=== PATIENT | male | born 2000 | race Hispanic/Latino ===

== ENCOUNTER 2020-02-06 13:41 | Emergency (ER) | payer BC ==
[~2020-02-06] VITALS: Ht 180.3 cm; Wt 121.1 kg
--- OUTSIDE RECORDS SUMMARY | ~2020-02-06 | XMS ---
Demographics + + + | Address | [address] | | | [place] [address] | + + + | Preferred Language | Unknown | + + + | Marital Status | Unknown | + + + | Temple Affiliation | Unknown | + + + | Race | Unknown | + + + | Ethnic Group | Unknown | + + + Author + + + | Author | [facility] | + + + | Organization | [facility] | + + + | Address | [address] | | | [place] [address] | + + + | Phone | | + + + Care Team Providers + + + + | Care Vacation Guide Name | Role | Phone | + + + + Unavailable | Unavailable | + + + + PROBLEMS + + + + + + + + | Type | Condition | ICD9-CM | [id number] | Onset | Condition | SNOMED | | | | Code | Code | Dates | Status | Code | + + + + + + + + | Problem | PTSD | | F43.10 | | Active | [id number] | | | (post-trau | | | | | | | | matic | | | | | | | | stress | | | | | | | | disorder) | | | | | | + + + + + + + + | Problem | Major | F32.9 | | | Active | [id number] | | | depressive | | | | | | | | disorder | | | | | | + + + + + + + + | Assessment | Major | F32.9 | | 21 Apr, | Active | [id number] | | | depressive | | | 2017 | | | | | disorder | | | | | | + + + + + + + + ALLERGIES + + + + +--------+ | Substance | Reaction | Event Type | Date | Status | + + + + +--------+ | Excedrin Extra | facial | Drug Allergy | Aug, | Active | | Strength | swelling/hives | | | | + + + + +--------+ | Advil Cold & | facial | Drug Allergy | Aug, | Active | | Sinus | swelling/hives | | | | | Liqui-Gels | | | | | + + + + +--------+ SOCIAL HISTORY No smoking Hx information available PLAN OF CARE VITAL SIGNS + + + + | Height | 70.5 in | 2016-08-29 | + + + + | Weight | 225.4 lbs | 2016-08-29 | + + + + | BMI | 31.88 kg/m2 | 2016-08-29 | + + + + | Temperature | 98.3 degrees Fahrenheit | 2016-08-29 | + + + + | Heart Rate | 73 /min | 2016-08-29 | + + + + | Blood pressure systolic | 135 mm Hg | 2016-08-29 | + + + + | Blood pressure diastolic | 60 mm Hg | 2016-08-29 | + + + + MEDICATIONS + + + + +--------+ + +--------+ | Medicati | Instruct | Dosage | Frequenc | Start | End Date | Duration | Status | | on | ions | | y | Date | | | | + + + + +--------+ + +--------+ | Fluoxeti | Orally | 1 | 24h | | | | Active | | ne HCl | Once a | capsule | | | | | | | 20 mg | day | in the | | | | | | | | | morning | | | | | | + + + + +--------+ + +--------+ RESULTS No Results PROCEDURES + + + + + | Procedure | Date Ordered | Related Diagnosis | Body Site | + + + + + | Est Level III | August 29, 2016 | | | | Intermediate | | | | + + + + + IMMUNIZATIONS No Known Immunizations"
--- OUTSIDE RECORDS SUMMARY | ~2020-02-06 | XMS ---
Demographics + + + | Address | [address] | | | [place] [address] | + + + | Preferred Language | Unknown | + + + | Marital Status | Unknown | + + + | Religion Affiliation | Unknown | + + + | Race | Unknown | + + + | Ethnic Group | Unknown | + + + Author + + + | Author | [facility] | + + + | Organization | [facility] | + + + | Address | [address] | | | [place] [address] | + + + | Phone | | + + + Care Team Providers + + + + | Care Manager [place] Name | Role | Phone | + + + + Unavailable | Unavailable | + + + + PROBLEMS +---------+ + + +--------+ + + | Type | Condition | ICD9-CM | [id number] | Onset | Condition | SNOMED | | | | Code | Code | Dates | Status | Code | +---------+ + + +--------+ + + | Problem | PTSD | | F43.10 | | Active | [id number] | | | (post-trau | | | | | | | | matic | | | | | | | | stress | | | | | | | | disorder) | | | | | | +---------+ + + +--------+ + + | Problem | Major | F32.9 | | | Active | [id number] | | | depressive | | | | | | | | disorder | | | | | | +---------+ + + +--------+ + + ALLERGIES + + + + +--------+ | Substance | Reaction | Event Type | Date | Status | + + + + +--------+ | Excedrin Extra | facial | Drug Allergy | Jan, | Active | | Strength | swelling/hives | | | | + + + + +--------+ | Advil Cold & | facial | Drug Allergy | Jan, | Active | | Sinus | swelling/hives | | | | | Liqui-Gels | | | | | + + + + +--------+ SOCIAL HISTORY Never Assessed PLAN OF CARE + +---------+ | Activity | Details | + +---------+ +---+ | | +---+ + + + | Follow Up | 6 Months Reason:null | + + + VITAL SIGNS + + + + | Height | 5'11 in | 2017-01-30 | + + + + | Weight | 245 lbs | 2017-01-30 | + + + + | BMI | 47.84 kg/m2 | 2017-01-30 | + + + + | Temperature | 98.2 degrees Fahrenheit | 2017-01-30 | + + + + | Heart Rate | 85 /min | 2017-01-30 | + + + + | Blood pressure systolic | 136 mm Hg | 2017-01-30 | + + + + | Blood pressure diastolic | 66 mm Hg | 2017-01-30 | + + + + MEDICATIONS + + + + +--------+ + +--------+ | Medicati | Instruct | Dosage | Frequenc | Start | End Date | Duration | Status | | on | ions | | y | Date | | | | + + + + +--------+ + +--------+ | Fluoxeti | Orally | 1 cap(s) | 24h | | | 30 | Active | | ne HCl | daily | | | | | day(s) | | | 40 MG | | | | | | | | + + + + +--------+ + +--------+ RESULTS No Results PROCEDURES + + +--------+ + | Procedure | Date Ordered | Result | Body Site | + + +--------+ + | [facility]RG MED/CURRENT | Jan 30, 2017 | | | | MED MERGE | | | | + + +--------+ + | DOC MEDS VERIFIED | Jan 30, 2017 | | | | W/PT OR RE | | | | + + +--------+ + IMMUNIZATIONS No Known Immunizations MEDICAL (GENERAL) HISTORY + + +------+ | Type | Description | Date | + + +------+ | Medical History | asthma when younger. | | + + +------+ | Medical History | Major depression | | + + +------+ | Medical History | PTSD | | + + +------+ | Surgical History | apendectomy | 2003 | + + +------+"
--- OUTSIDE RECORDS SUMMARY | ~2020-02-06 | XMS ---
Demographics + + + | Address | [address] | | | [place] [address] | + + + | Preferred Language | Unknown | + + + | Marital Status | Unknown | + + + | Mosque Affiliation | Unknown | + + + | Race | Unknown | + + + | Ethnic Group | Unknown | + + + Author + + + | Author | [facility] | + + + | Organization | [facility] | + + + | Address | [address] | | | [place] [address] | + + + | Phone | | + + + Care Team Providers + + + + | Care Physician [facility] Name | Role | Phone | + + + + Unavailable | Unavailable | + + + + PROBLEMS +---------+ + + +--------+ + + | Type | Condition | ICD9-CM | [id number] | Onset | Condition | SNOMED | | | | Code | Code | Dates | Status | Code | +---------+ + + +--------+ + + | Problem | PTSD | | F43.10 | | Active | [id number] | | | (post-trau | | | | | | | | matic | | | | | | | | stress | | | | | | | | disorder) | | | | | | +---------+ + + +--------+ + + | Problem | Major | F32.9 | | | Active | [id number] | | | depressive | | | | | | | | disorder | | | | | | +---------+ + + +--------+ + + ALLERGIES Unknown Allergies SOCIAL HISTORY No smoking Hx information available PLAN OF CARE VITAL SIGNS MEDICATIONS Unknown Medications RESULTS No Results PROCEDURES No Known procedures IMMUNIZATIONS No Known Immunizations"
--- OUTSIDE RECORDS SUMMARY | ~2020-02-06 | XMS ---
Demographics + + + | Address | [address] | | | [place] [address] | + + + | Preferred Language | Unknown | + + + | Marital Status | Unknown | + + + | Quaker Affiliation | Unknown | + + + | Race | Unknown | + + + | Ethnic Group | Unknown | + + + Author + + + | Author | [facility] | + + + | Organization | [facility] | + + + | Address | [address] | | | [place] [address] | + + + | Phone | | + + + Care Team Providers + + + + | Care Stratigraphy Teacher Name | Role | Phone | + + + + Unavailable | Unavailable | + + + + PROBLEMS + + + + + + + + | Type | Condition | ICD9-CM | [id number] | Onset | Condition | SNOMED | | | | Code | Code | Dates | Status | Code | + + + + + + + + | Problem | PTSD | | F43.10 | | Active | [id number] | | | (post-trau | | | | | | | | matic | | | | | | | | stress | | | | | | | | disorder) | | | | | | + + + + + + + + | Problem | Major | F32.9 | | | Active | [id number] | | | depressive | | | | | | | | disorder | | | | | | + + + + + + + + | Assessment | Depression | Z13.89 | | 03 Aug, | Active | [id number] | | | screen | | | 2016 | | | + + + + + + + + | Assessment | Major | F32.9 | | 03 Aug, | Active | [id number] | | | depressive | | | 2017 | | | | | disorder | | | | | | + + + + + + + + | Assessment | Encounter | | Z13.89 | Aug, | Active | [id number] | | | for | | | 2016 | | | | | screening | | | | | | | | for other | | | | | | | [...] smoking Hx information available PLAN OF CARE + +---------+ | Activity | Details | + +---------+ +---+ | | +---+ + + + | Pending Test | CBC, Platelet; No Differential | + + + | Pending Test | TSH+Free T4 | + + + | Pending Test | Comp. Metabolic Panel (14) | + + + | | 2 Weeks,Reason: | + + + VITAL SIGNS + + + + | Height | 70.5 in | 2016-08-11 | + + + + | Weight | 230.0 lbs | 2016-08-11 | + + + + | BMI | 32.53 kg/m2 | 2016-08-11 | + + + + | Temperature | 99.1 degrees Fahrenheit | 2016-08-11 | + + + + | Heart Rate | 72 /min | 2016-08-11 | + + + + | Blood pressure systolic | 132 mm Hg | 2016-08-11 | + + + + | Blood pressure diastolic | 61 mm Hg | 2016-08-11 | + + + + MEDICATIONS + + + + + + + +--------+ | Medicati | Instruct | Dosage | Frequenc | Start | End Date | Duration | Status | | on | ions | | y | Date | | | | + + + + + + + +--------+ | Fluoxeti | Orally | 1 | 24h | 03 Apr, | | 6 day(s) | Active | | ne HCl | Once a | capsule | | 2016 | | | | | 10 MG | day | in the | | | | | | | | | morning | | | | | | + + + + + + + +--------+ | Fluoxeti | Orally | 1 | 24h | 03 Apr, | | 30 | Active | | ne HCl | Once a | capsule | | 2016 | | day(s) | | | 20 MG | day | in the | | | | | | | | | morning | | | | | | + + + + + + + +--------+ RESULTS No Results PROCEDURES + + + + + | Procedure | Date Ordered | Related Diagnosis | Body Site | + + + + + | Est Level IV | August 11, 2016 | | | | Extended | | | | + + + + + | CLIN DEPRESSION | August 11, 2016 | | | | SCREEN DOC | | | | + + + + + IMMUNIZATIONS No Known Immunizations"
--- OUTSIDE RECORDS SUMMARY | ~2020-02-06 | XMS ---
Demographics + + + | Address | [address] | | | [place] [address] | + + + | Preferred Language | Unknown | + + + | Marital Status | Unknown | + + + | Moravian Affiliation | Unknown | + + + | Race | Unknown | + + + | Ethnic Group | Unknown | + + + Author + + + | Author | [facility] | + + + | Organization | [facility] | + + + | Address | [address] | | | [place] [address] | + + + | Phone | | + + + Care Team Providers + + + + | Care Cushion Sewer Name | Role | Phone | + + + + Unavailable | Unavailable | + + + + PROBLEMS +---------+ + + +--------+ + + | Type | Condition | ICD9-CM | [id number] | Onset | Condition | SNOMED | | | | Code | Code | Dates | Status | Code | +---------+ + + +--------+ + + | Problem | PTSD | | F43.10 | | Active | [id number] | | | (post-trau | | | | | | | | matic | | | | | | | | stress | | | | | | | | disorder) | | | | | | +---------+ + + +--------+ + + | Problem | Major | F32.9 | | | Active | [id number] | | | depressive | | | | | | | | disorder | | | | | | +---------+ + + +--------+ + + ALLERGIES Unknown Allergies SOCIAL HISTORY No smoking Hx information available PLAN OF CARE VITAL SIGNS MEDICATIONS + + + + + + + +--------+ | Medicati | Instruct | Dosage | Frequenc | Start | End Date | Duration | Status | | on | ions | | y | Date | | | | + + + + + + + +--------+ | Amoxicil | Orally | 1 tablet | 12h | 07 September, | 17 September, | 10 | Active | | pablito 875 | every 12 | | | 2017 | 2017 | day(s) | | | MG | hrs | | | | | | | + + + + + + + +--------+ RESULTS No Results PROCEDURES No Known procedures IMMUNIZATIONS No Known Immunizations"
--- OUTSIDE RECORDS SUMMARY | ~2020-02-06 | XMS ---
Demographics + + + | Address | [address] | | | [place] [address] | + + + | Preferred Language | Unknown | + + + | Marital Status | Unknown | + + + | Synagogue Affiliation | Unknown | + + + | Race | Unknown | + + + | Ethnic Group | Unknown | + + + Author + + + | Author | [facility] | + + + | Organization | [facility] | + + + | Address | [address] | | | [place] [address] | + + + | Phone | | + + + Care Team Providers + + + + | Care Wash House Worker Name | Role | Phone | + + + + Unavailable | Unavailable | + + + + PROBLEMS + + + + + + + + | Type | Condition | ICD9-CM | [id number] | Onset | Condition | SNOMED | | | | Code | Code | Dates | Status | Code | + + + + + + + + | Problem | PTSD | | F43.10 | | Active | [id number] | | | (post-trau | | | | | | | | matic | | | | | | | | stress | | | | | | | | disorder) | | | | | | + + + + + + + + | Problem | Major | F32.9 | | | Active | [id number] | | | depressive | | | | | | | | disorder | | | | | | + + + + + + + + | Assessment | Penile | R36.9 | | 10 September, | Active | [id number] | | | discharge | | | 2016 | | | + + + + + + + + | Assessment | Dysuria | | R30.0 | 10 September, | Active | [id number] | | | | | | 2016 | | | + + + + + + + + ALLERGIES + + + + +--------+ | Substance | Reaction | Event Type | Date | Status | + + + + +--------+ | Excedrin Extra | facial | Drug Allergy | September, | Active | | Strength | swelling/hives | | | | + + + + +--------+ | Advil Cold & | facial | Drug Allergy | September, | Active | | Sinus | swelling/hives | | | | | Liqui-Gels | | | | | + + + + +--------+ SOCIAL HISTORY No smoking Hx information available PLAN OF CARE + +---------+ | Activity | Details | + +---------+ +---+ | | +---+ + + + | Pending Test | Urine Culture, Routine | + + + | Pending Test | Chlamydia/GC Aptima | + + + | | 3-4 weeks,Reason: | + + + VITAL SIGNS + + + + | Height | 70.5 in | 2016-09-10 | + + + + | Weight | 227.0 lbs | 2016-09-10 | + + + + | BMI | 32.11 kg/m2 | 2016-09-10 | + + + + | Temperature | 99.0 degrees Fahrenheit | 2016-09-10 | + + + + | Heart Rate | 78 /min | 2016-09-10 | + + + + | Blood pressure systolic | 131 mm Hg | 2016-09-10 | + + + + | Blood pressure diastolic | 76 mm Hg | 2016-09-10 | + + + + MEDICATIONS + + + + +--------+ + +--------+ | Medicati | Instruct | Dosage | Frequenc | Start | End Date | Duration | Status | | on | ions | | y | Date | | | | + + + + +--------+ + +--------+ | Fluoxeti | Orally | 2 | 24h | | | 30 days | Active | | ne HCl | Once a | capsules | | | | | | | 20 mg | day | in the | | | | | | | | | morning | | | | | | + + + + +--------+ + +--------+ RESULTS + +--------+ + + | Name | Result | Date | Reference Range | + +--------+ + + | Urinalysis, Dip | | 2016-09-10 | | | (IH) | | | | + +--------+ + + | Specific Niotaze | 1.015 | | | + +--------+ + + | pH | 8 | | | + +--------+ + + | Leukocytes | 500 | | | + +--------+ + + | Nitrite, Urine | NEG | | | + +--------+ + + | Protein | NEG | | | + +--------+ + + | Glucose | NORM | | | + +--------+ + + | Ketones | NEG | | | + +--------+ + + | Urobilingen, | NORM | | | | Semi-Qn | | | | + +--------+ + + | Bilirubin | NEG | | | + +--------+ + + | Blood Hemoglobin | TR | | | | (BLD) | | | | + +--------+ + + PROCEDURES + + + + + | Procedure | Date Ordered | Related Diagnosis | Body Site | + + + + + | LAB URINALYSIS (DIP | September 10, 2016 | | | | STICK ONLY | | | | + + + + + | Est Level IV | September 10, 2016 | | | | Extended | | | | + + + + + | DOC MEDS VERIFIED | September 10, 2016 | | | | W/PT OR RE | | | | + + + + + | DSCHRG MED/CURRENT | September 10, 2016 | | | | MED MERGE | | | | + + + + + IMMUNIZATIONS No Known Immunizations"
[~2020-02-06 13:41] MED LIST: IBUPROFEN600 MG PO; NORCO 5-325 TA1 EACH PO; PENICILLIN V P250 MG PO; TYLENOL325 MG PO; ULTRAM50 MG PO
[2020-02-06] MEDS ORDERED: ONDANSETRON ODT4 MG SL (14:31)
[2020-02-06] MEDS ORDERED: DICYCLOMINE HCL10 MG PO (14:31)
== END 2020-02-06 15:07 | disposition home or self-care (01) ==
LOC: ED 13:41
DX: K52.9 Noninfective gastroenteritis and colitis, unspecified (principal); F41.9 Anxiety disorder, unspecified; F32.9 Major depressive disorder, single episode, unspecified; J45.909 Unspecified asthma, uncomplicated; Z88.8 Allergy status to other drugs, medicaments and biological substances; Z91.02 Food additives allergy status; Z79.899 Other long term (current) drug therapy
CPT/HCPCS: 99283